=== PATIENT | male | born 1955 | race African-American/Black ===

== ENCOUNTER → 2017-02-01 | Outpatient (CLI) | payer BC ==
[~2017-02-01] MED LIST: MELO15TA10 PO; MULT-506 PO
[2017-02-01 13:15] LABS: BASO % 0.4 %; BASO ABS # 0.02 K/uL (0-0.2); COMPLETE YES; EOS % 2.2 %; HEMATOCRIT 46.2 % (42-52); IG% 0.2 %; LYMPH % 37.8 %; LYMPH ABS # 2.09 K/uL (1.2-3.4); MEAN CELL VOLUME 91.7 fL (80-100); MEAN CORPUSCULAR HEMOGLOBIN 30.8 pg (25-34); MEAN CORPUSCULAR HGB CONC 33.5 g/dl (32-36); MEAN PLATELET VOLUME 9.8 fL (7.4-10.4); MONO % 7.8 %; NEUT % 51.6 %; PLATELET COUNT 220 K/uL (130-400); RED BLOOD COUNT 5.04 M/uL (4.7-6.1); WHITE BLOOD COUNT 5.53 K/uL (4.8-10.8)
[2017-02-01 14:04] LABS: ESTIMATED AVERAGE GLUCOSE 117 mg/dl; HA1C FLAG Normal (Normal)
[2017-02-01 14:32] LABS: ALT/SGPT 41 U/L (12-78); AST/SGOT 22 U/L (15-37); BLOOD UREA NITROGEN 12 mg/dl (7-18); BUN/CREATININE RATIO 10.3 (10-20); CARBON DIOXIDE 24 mmol/L (21-32); CHLORIDE 108 mmol/L (98-107); CHOLESTEROL 201 mg/dl (0-200); GLUCOSE 98 mg/dl (70-99); POTASSIUM 4.1 mmol/L (3.5-5.1); SODIUM 140 mmol/L (136-145)
[2017-02-01 14:43] LABS: ALB/GLOB RATIO 1.2 (0.9-2); ALKALINE PHOSPHATASE 65 U/L (45-117); CHOLESTEROL/HDL RATIO 3.3; HDL CHOLESTEROL 61 mg/dl; TRIGLYCERIDES 85 mg/dl (0-150); VERY LOW DENSITY LIPOPROT CALC 17 mg/dl
== END | disposition home or self-care (01) ==
LOC: C.PAPS 12:20 → C.LABSPEC 14:33
PROVIDERS: ATTEND Internal Medicine
DX: E78.5 Hyperlipidemia, unspecified (principal); R73.9 Hyperglycemia, unspecified; R53.83 Other fatigue; N40.0 Benign prostatic hyperplasia without lower urinary tract symptoms; R63.4 Abnormal weight loss

== ENCOUNTER → 2017-08-16 | Outpatient (CLI) | payer BC | END | disposition home or self-care (01) | LOC: C.PATHSPEC 17:59 | PROVIDERS: ATTEND Physician Assistant | DX: L91.8 Other hypertrophic disorders of the skin (principal); L82.1 Other seborrheic keratosis ==

== ENCOUNTER 2025-06-21 08:32 | Observation (INO) ==
--- NOTE | 2025-05-22 15:49 | PAT Medication Instructions ---
Medication Instructions Date of Service May 22, 2025 Home Medications Medication Instructions Recorded Candelaria William #1 ea 04/12/25 sulfamethoxazole 800 1 tab PO BID #6 tabs 05/09/25 mg-trimethoprim 160 mg tablet (Bactrim DS) multivitamin (Daily Multi-Vitamin tablet) 1 tab PO DAILY sulfamethoxazole 800 mg-trimethoprim 160 mg tablet (Bactrim DS) 1 tab PO BID diclofenac sodium 1 % topical gel 1 g topical UD PRN pain Continue as directed sulfamethoxazole 800 mg-trimethoprim 160 mg tablet (Bactrim DS) 1 tab PO BID STOP taking 24 hours before surgery diclofenac sodium 1 % topical gel 1 g topical UD PRN pain (unless told otherwise by surgeon) DO NOT take the morning of surgery multivitamin (Daily Multi-Vitamin tablet) 1 tab PO DAILY MORNING OF SURGERY: NOTHING TO EAT OR DRINK AFTER MIDNIGHT Other Notes If you have any questions please call us at [phone] or [phone] or [phone] or [phone]
--- NOTE | 2025-05-30 10:11 | Anesthesiology Consultation ---
Date of Service May 30, 2025 Assessment & Plan (1) Encounter for pre-operative examination: - Infectious disease screening: Per assessment on 05/30/25- No known recent infectious disease contacts or current infectious disease symptoms. - Outpatient joint assessment: Pt currently scheduled for inpatient pathway. If surgeon requests review for outpatient joint pathway, patient is an acceptable candidate for outpatient joint program from anesthesia standpoint pending surgeon's office assessment that patient is motivated, has good support and completes [facility] preop requirements. - Patient concern: Requests deeper sedation if/when possible - Preop EKG notes inferior infarct; preop CXR notes possible pulmonary nodule > Workload message send to PCP regarding preop EKG/CXR findings- Awaiting PCP response. Patient is otherwise acceptable risk for surgery. Chart Review Chart Review: Patient seen in Pre Admission Testing Teaching & Discussion Pre-Anesthesia Teaching/Discussion Notes: Instructed NPO after midnight before surgery,except medications with 15 cc of water. Medication instructions provided according to the PAT guidelines. History Surgery Operation Date: 06/21/25 10:40 Proposed Procedures p Left Unicompartmental Knee versus - Robbie Reid MD s Total Knee Arthroplasty - Robbie Reid MD Height/Weight Height: 6 ft 2.5 in Weight: 114.2 kg Allergies Allergy/AdvReac Type Severity Reaction Status Date / Time No Known Allergies Allergy Mild Verified 05/22/25 14:12 Medications Home Medications Medication Instructions Recorded Confirmed Last Taken multivitamin (Daily Multi-Vitamin 1 tab PO DAILY 03/20/21 05/22/25 Unknown tablet) Wheeled Walker #1 ea 04/12/25 04/12/25 Unknown sulfamethoxazole 800 1 tab PO BID #6 tabs 05/09/25 05/22/25 Unknown mg-trimethoprim 160 mg tablet (Bactrim DS) diclofenac sodium 1 % topical gel 1 g topical UD PRN pain 05/22/25 05/22/25 Unknown Past Medical History Medical History Atypical nevi 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" Annual [facility] derm surveillance Elevated cholesterol Monitoring Elevated PSA Bx 05/22/25 Fear of needles History of colon polyps History of COVID-19 ~ History of vertigo Occasional with position change No recent issues Osteoarthritis Right bundle branch block Shoulder problem Right, tendon detached sx recommended/no hx sx intervention Exercise / Class Metabolic Activity II 4-5 Yardwork/Stairs/Walk up hill (one FS: No CP, no SOB) Past Family History Family History Other No significant family history Past Surgical History Surgical History H/O left knee surgery Meniscus repair H/O repair of rotator cuff Left History of colonoscopy History of eye surgery Glass pieces removed from eye (? side) As child History of prostate biopsy (05/2025) In-office History of tooth extraction Some teeth removed for permanent bridge placement S/P trigger finger release Both thumbs Past Anesthesia History No Hx of Anesthesia Complications and No Family Hx of Anesthesia Complications History of PONV No Hx of PONV and No Hx of Motion Sickness Social History Smoking Status: Never smoker Do You Dip or Chew Tobacco: No Hx Alcohol Use: Yes Alcohol type: beer alcohol intake frequency: holidays/special occasions only Hx Substance Use: No substance use type: does not use Review of Systems Patient denies chest pain, shortness of breath, dyspnea on exertion, fever, chills, cough, wheezing, palpitations. Physical Exam Vital Signs BP 132/84 P 62 TEMP 98.1 SP02 95%RA RESP 16 Physical Full cervical extension range of motion. Full TMJ range of motion. TMD > 3.5 finger breaths Mallampati Score I Dentition: intact, bridge (lower right molars) Lungs: clear throughout to auscultation Cardiac: regular rate and rhythm, no murmurs noted Spine: normal Carotid arteries: negative bruit Extremities: no LE edema Lab Results Anesthesia Preop Results Results Anesthesia Widget: WBC 5.91 K/ul (4.8-10.8) 05/30/25 Hgb 15.1 g/dl (14.0-18.0) 05/30/25 Hct 44.5 % (42.0-52.0) 05/30/25 Plt 198 K/uL (130-400) 05/30/25 Na 140 mmol/L (136-145) 05/30/25 K 4.6 mmol/L (3.5-5.1) 05/30/25 Cl 107 mmol/L (98-107) 05/30/25 CO2 27 mmol/L (21-32) 05/30/25 BUN 14 mg/dl (6-23) 05/30/25 Creat 0.89 mg/dl (0.6-1.4) 05/30/25 Glucose Level 114 mg/dl (70-99(Fasting)) H 05/30/25 PT 10.3 Seconds (9.0-12.0) 05/30/25 PTT 25 Seconds (21-31) 05/30/25 INR 1.0 (0.9-1.1) 05/30/25 Blood Type B Positive 05/30/25 Antibody Screen NEGATIVE 05/30/25 Testing Electrocardiogram Date: 05/30/25 NSR at 63bpm. RBBB. Inferior infarct, age undetermined. Chest X-Ray Date: 05/30/25 FINDINGS: Heart size and pulmonary vasculature are normal. No consolidation or pleural effusion. On the lateral view there is a 1 cm nodular density overlying the posterior mid lungs and the thoracic spine. IMPRESSION: Possible pulmonary nodule versus artifact. Chest CT recommended.
[~2025-06-21 08:32] MED LIST changes: +BUPIVACAINE 0.25% PF 30 ML VIAL ONE; +BUPIVACAINE 0.5 % 5 MG/1 ML PF 10ML VIAL ONE; -MELO15TA10 PO; -MULT-506 PO
--- NOTE | 2025-06-21 08:52 | History & Physical Bridge Note ---
Date of Service June 21, 2025 History & Physical Bridge Note I have examined the patient, reviewed the History & Physical and in the interval since the performance of the History & Physical I have noted the following changes of clinical significance: no changes noted
[2025-06-21] MEDS: LR 500ML BOLUS, THEN 15ML/HR IV SCH (09:29)
[2025-06-21] MEDS: CeleBREX 200 MG CAP PO SCH (09:32)
[2025-06-21] MEDS: METOCLOPRAMIDE HCL 10 MG TABLET PO SCH (09:32)
[2025-06-21] MEDS: FAMOTIDINE 20 MG TAB PO SCH (09:32)
[2025-06-21] MEDS: LR 60ML/HR IV SCH (09:32)
[2025-06-21] MEDS: ACETAMINOPHEN 500 MG TAB PO SCH ×2 (09:33→16:38)
[2025-06-21] MEDS: dexAMETHasone**PF** 10 MG/ML VIAL IV SCH (09:33)
[2025-06-21] MEDS ORDERED: ONDANSETRON INJ 2 MG/ML 2 ML VIAL IV PRN ×2 (10:08→15:33)
[2025-06-21] MEDS ORDERED: ATROPINE SULFATE 0.1 MG/ML 10ML SYR IV PRN (10:08)
[2025-06-21] MEDS ORDERED: MIDAZOLAM HCL 1 MG/ML 2ML VIAL ONE (10:37)
[2025-06-21] MEDS ORDERED: PROPOFOL IV EMULSION 10 MG/ML 100 ML VIAL IV ONE (11:57)
[2025-06-21] MEDS: ORTHO JOINT ANESTHETIC ONE (12:33)
[2025-06-21] MEDS: ROPIV 0.5% 246mg, Ketorolac 30mg, EPINEPHrine 0.5mg in NSS INFIL SCH (13:28)
--- NOTE | 2025-06-21 13:49 | Operative Report ---
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 0 moderate-sized knee joint effusion. She has some fairly minimal changes in the trochlea and the patella was well- preserved. The lateral compartment looked relatively normal. His ACL was intact Specimens Left knee sent for pathology. Anesthesia Type Spinal MAC Complications none Disposition Accompanied Patient To Recovery: No Indications The patient is a 70-year-old gentleman with a several year history of bilateral increasing knee pain and discomfort that is gradually got worse over time. He does a history of a left knee scope in this knee about 10 years ago. His symptoms are localized to the medial side of his knee. X-rays show advanced medial compartment arthritis. He elected proceed with left partial knee replacement. Description of Procedure Operative implants consists of: 1 Biomet Solano large medial femoral component. 2. Biomet Solano left medial size D tibial tray. 3. 4 mm large mobile-bearing polyethylene insert The patient was taken to the op room, identified, placed on the operating table in the supine position. All contact areas were appropriately padded. IV antibiotics were applied by anesthesia team. Spinal anesthetic could be implemented holding area. Left thigh tent was then placed. Left lower extremities then prepped and draped in usual sterile fashion. The left leg was elevated and exsanguinated with use of an Esmarch and tourniquet placed at 300 mmHg. An anterior approach to the left knee was then performed through a longitudinal incision beginning at the superior pole patella and extending just medial to the tibial tubercle. Sharp dissection was carried out through subcutaneous tissue down to the extensor mechanism. A medial parapatellar arthrotomy incision was made. Some subperiosteal dissection was carried out medially. We did incise a little bit into the VMO to allow adequate exposure. The fat pad was resected. Some osteophytes taken off the distal femur. I then examined the knee. The ACL was intact. He had full-thickness cartilage loss medially. The lateral compartment was well-preserved. There was some mild patellofemoral changes and we elected proceed with a partial knee replacement. The femur was then sized to a size large. The largest pin was placed. The external tibial alignment jig was then placed on the anterior face the tibia and adjusted to the large thin and attached with a 4G clamp. The tibial cutting guide was pinned in place. The proximal tibial cut was made taking great care to protect the tibia itself. The tibia was then sized to a size D. The 4 feeler gauge was felt to fit appropriately. Attention then drawn the femur. The distal femur was entered with a sharp drill. Intramedullary raquel was placed. The large femoral template was placed set at 4. It was attached to the IM raquel. The holes were drilled for the femoral component. The posterior cutting guide was placed and the posterior cut was made. The medial meniscus was excised. The 0 spigot was used milled the distal femur. We then trialed the knee and the 4 feeler gauge fit appropriately in flexion and the 1 will fit but it was a bit tight in extension. We first milled with a 3 spigot but tried it again it was still little tight in extension so we milled with a 4 spigot. At this point the knee was well-balanced with a 4 insert. We elect to place these implants. The femoral prep device was then placed in the milling was done for the anterior femur and the osteophyte was removed posteriorly. The tibial tray was pinned in place. Toothbrush blade saw was used to create the keel. We then trialed the knee. I did have to clean out the keel area little bit in order to get the tibial trial in easily. We trialed the knee and the 4 insert fit appropriately. We elected place his implants. All trial implants were removed. I irrigated extensively. A left medial size D tibial tray was then placed. A size large Solano femoral component was placed. A for an insert was placed. The knee tracked nicely and was well-balanced. Attention then drawn toward closing. We injected locally with 100 cc of Ortho mix. The tourniquet was let down for tourniquet time of 65 minutes. Hemostasis surgery was electrocautery. Extensor Meclomen closed with #1 Vicryl suture in a [id number] fashion. Extensor Meclomen checked found to be intact in the subcutaneous tissue then closed with 2 Dexon suture in a buried erupted fashion skin was closed with skin miriam. Leg was then cleaned and dried and a sterile dressing with Xeroform, 4 fours, sterile cast padding, Srikanth bandage were applied. The patient then transferred to the recovery room in stable condition. Patient tolerated procedure well and no complications. Kirby Greene, my physician physician's assistant, was present for the entire procedure. His assistance was essential and required for appropriate patient positioning, prepping and draping, surgical exposure, performing the technical details of the operation, placement the implants, closure of the wound, and placement of the sterile bandage. I attest to the content of the Intraoperative Record and any orders documented therein. Any exceptions are noted below.
--- NOTE | 2025-06-21 14:18 | XRay Report ---
XR knee LT 1 or 2V routine CLINICAL HISTORY: Postoperative evaluation. COMPARISON: Left knee radiographs April 12, 2025. FINDINGS: Medial compartment arthroplasty of the left knee is noted. Hardware is intact. There is no periprosthetic fracture or unexpected radiopaque foreign body. There are skin miriam. IMPRESSION: Expected findings following medial compartment arthroplasty of the left knee. ACT 112: Negative or not required by law. Electronically signed by: Ced Middleton M.D. 06/21/2025 2:16 PM
--- NOTE | 2025-06-21 14:47 | Anesthesiology Progress Note ---
Date of Service June 21, 2025 Anesthesia Post Procedure Vital Signs Vital Signs: Temp Pulse Resp BP BP Pulse Ox O2 Del Method 06/21/25 14:40 72 16 108/66 95 Room Air 06/21/25 14:30 65 15 111/64 96 Room Air 06/21/25 14:20 64 12 98/63 L 95 Room Air 06/21/25 14:10 71 15 105/65 96 Room Air 06/21/25 14:00 70 15 98/56 L 97 Oxymask 06/21/25 13:50 71 14 103/57 L 98 Oxymask 06/21/25 13:44 36.3 C L 89 14 95/47 L 96 Oxymask 06/21/25 09:01 36.8 C 61 18 134/92 94 Room Air O2 Flow Rate 06/21/25 14:40 06/21/25 14:30 06/21/25 14:20 06/21/25 14:10 06/21/25 14:00 4 06/21/25 13:50 9 06/21/25 13:44 9 06/21/25 09:01 Transfer of Care Handoff Completed per policy Notes Mental Status: alert / awake / arousable and participated in evaluation Patient Amnestic to Procedure: Yes Nausea / Vomiting: adequately controlled Pain: adequately controlled Airway Patency, RR, SpO2: stable & adequate BP & HR: stable & adequate Hydration State: stable & adequate Neuraxial Anesthesia: was administered and sensory block is resolving Anesthetic Complications: no major complications apparent and Pt Satisfied with anesthetic care
[2025-06-21] MEDS ORDERED: HYDROmorphone INJ 0.5 MG/0.5 ML SYR IV PRN (15:33)
[2025-06-21] MEDS ORDERED: NALOXONE HCL 0.4 MG/1 ML VIAL/CARP IV PRN (15:33)
[2025-06-21] MEDS ORDERED: METOCLOPRAMIDE HCL INJ 5 MG/ML 2 ML VIAL IV PRN (15:33)
[2025-06-21] MEDS ORDERED: ALUMINUM/MAGNESIUM SUSP 30 ML UDC PO PRN (15:33)
[2025-06-21] MEDS ORDERED: MAGNESIUM HYDROXIDE SUSP 30 ML UDC PO PRN (15:33)
[2025-06-21] MEDS: KETOROLAC TROMETHAMINE 15 MG/ML VIAL IV SCH (16:39)
[2025-06-21] MEDS: SODIUM CHLORIDE 0.9% 1,000 ML IV SCH (16:39)
[2025-06-21] MEDS: ASCORBIC ACID 500 MG TAB PO SCH (18:07)
[2025-06-21] MEDS: TRANEXAMIC ACID / 0.7% NACL 1,000 MG/100 ML BAG IV SCH (19:59)
[2025-06-21] MEDS ORDERED: SENNA 8.6 MG TAB PO SCH (21:00)
[2025-06-21] MEDS: SENNA 8.6 MG TAB PO SCH (21:29)
[2025-06-21] MEDS: DOCUSATE SODIUM 100 MG CAP PO SCH (21:30)
[2025-06-21] MEDS: ASPIRIN 81 MG ECTAB PO SCH (21:30)
[2025-06-22 05:58] LABS: Hematocrit (blood only) 38.8 % (42.0-52.0); Hemoglobin 13.5 g/dl (14.0-18.0); Mean Corpuscular Hemoglobin 31.1 pg (25.0-34.0); Mean Corpuscular Volume 89.4 fL (80.0-100.0); Platelet Count 192 K/uL (130-400); RDW Standard Deviation 41.7 fL (36.4-46.3); Red Blood Count 4.34 M/uL (4.70-6.10); White Blood Count 11.94 K/ul (4.8-10.8)
[2025-06-22 06:13] LABS: Anion Gap 8.0 (3-11); Blood Urea Nitrogen 12.0 mg/dl (6-23); Calcium 8.7 mg/dl (8.6-10.3); Carbon Dioxide 23.0 mmol/L (21-32); Chloride 109.0 mmol/L (98-107); Creatinine Clr Calc Pharmacy 91.6 ml/min; Glucose 113.0 mg/dl (70-99(Fasting)); Potassium 4.0 mmol/L (3.5-5.1); Sodium 140.0 mmol/L (136-145)
--- NOTE | 2025-06-22 06:42 | Orthopedic Progress Note ---
Date of Service June 22, 2025 Assessment & Plan (1) Status post left partial knee replacement: Plan: 70-year-old gentleman postop day 1 from left partial knee replacement. Orthopedically he is doing pretty well. Pain is controlled. He is neurologically intact. Plan: 1. DVT prophylaxis including thigh-high teds, SCDs, aspirin twice a day. 2. PT/OT. Weight-bear as tolerated. Left total knee protocol. 3. Pain control. Doing okay with current pain regimen. 4. Disposition. Plan to discharge to home with home health later today. Admission and Anticipated Discharge Date Admission Date: June 21, 2025 Subjective 70-year-old gentleman postop day 1 from left partial knee replacement. He is doing okay. Pain is controlled. Did have a really good night sleep last night due to a neighbors loud noise making. No chest pain or shortness of breath. Not feeling dizzy or lightheaded. Physical Exam Physical Exam: Physical examination is a pleasant middle-age male. He is lying in bed looks pretty comfortable this morning. Examination left leg reveals the dressing be clean dry and intact. No drainage. Good straight leg raise. He is neurologically intact. Respiratory: normal respiratory effort, lungs clear to auscultation Cardiovascular: RRR, no murmur, no edema Gastrointestinal (Abdomen): normal bowel sounds, soft, nontender, no hepatosplenomegaly Results & Data Vital Signs (Past 12 Hours) Vital Signs Temp Pulse Resp BP Pulse Ox O2 Del Method 06/22/25 03:30 36.5 C 65 18 126/75 97 Room Air 06/22/25 00:04 36.5 C 71 18 122/73 97 Room Air 06/21/25 22:03 36.4 C L 62 14 125/74 96 Room Air Laboratory Results Hemoglobin 13.5. Hematocrit 38.8. Electrolytes are stable.
[2025-06-22 07:32] VITALS: PULSE 68; RESP 16; TEMP 98.6; O2SAT 95
[2025-06-22] MEDS: MULTIVITAMIN TAB PO SCH (07:37)
[2025-06-22] MEDS: TAMSULOSIN HCL 0.4 MG CAP PO SCH (07:38)
[2025-06-22] MEDS: dexAMETHasone 10 MG in SYRINGE 0 ML IV SCH (07:39)
[2025-06-22] MEDS ORDERED: MULTIVITAMIN TAB PO SCH (09:00)
[2025-06-22 10:23] VITALS: BP 134/92
== END 2025-06-22 12:06 | disposition home health service (06) ==
LOC: 3E 08:32 → ASU 08:32